=== PATIENT | female | born 1970 | race Caucasian/White ===

== ENCOUNTER → 2019-04-20 | Outpatient (CLI) | payer OTHER ==
[~2019-04-20] MED LIST: CIPROFLOXACIN500 M1 PO; ZOFRAN ODT4 MG PO
[2019-04-20 14:23] LABS: HEMATOCRIT 37.4 % (37.0-47.0); HEMOGLOBIN 12.8 gm/dL (12.0-15.0); MCH 30.6 pg (26.0-34.0); MCHC 34.3 g/dL (28.0-37.0); MCV 89.4 fL (80.0-100.0); MPV 7.3 fl. (7.2-11.1); RBC 4.19 mil/uL (4.20-5.00); RDW-CV 13.6 % (10.5-14.5); WBC 5.5 thou/uL (4.0-11.0)
== END ==
LOC: M.LAB 14:05
PROVIDERS: Internal Medicine Cardiovascular Disease
DX: R06.09 Other forms of dyspnea (principal)

== ENCOUNTER → 2019-05-05 | Outpatient (CLI) | payer OTHER ==
--- NOTE | 2019-05-05 21:09 | CARDNUC ---
[place] [address] CARDIAC NUCLEAR IMAGING REPORT Name: SEBASTIÁN SHANKS Room: [facility]#: [id number] Admission: 05/05/19 Attend Phys: Tony Katz, Discharge: Date of : 66 Date of Service: 05/05/192108 Report #: [id number] THIS REPORT FOR: //name// APPROVED REPORT Imaging Protocol: Rest Tc-99m/Stress Tc-99m 1 day Study performed: 05/05/2019 09:45:00 Indication: Chest pain, Dyspnea Patient Location: Out-Patient Stress Tech: Chrystal Silva Stress Nurse: La Dawn RN NM Tech:YANIV Salgado Ht: 5 ft 6 in Wt: 170 lbs BSA: 1.87 m2 BMI: 27.43 Medical History Medications: none Allergies: latex, morphine, sulfa Cardiac Risk Factors: Age Exercise History: Physically active Resting Data Rest SPECT myocardial perfusion imaging was performed in supine position 30 minutes following the intravenous injection of 11.1 mCi of Tc-99m Sestamibi. Time of rest injection: 1000 Date: 05/05/2019 The images were gated to evaluate regional wall motion and calculate left ventricular ejection fraction. Administration Route: IV Administration Site: Right Hand Exercise Stress At peak stress, the patient was injected intravenously with 34.6mCi of Tc-99m Sestamibi. Time of stress injection: 1125 Date: 05/05/2019 Administration Route: IV Administration Site: Right Hand Gated Stress SPECT was performed 30 minutes after stress injection. The images were gated to evaluate regional wall motion and calculate left ventricular ejection fraction. [place]one [place] [address] CARDIAC NUCLEAR IMAGING REPORT Name: ATKASEBASTIÁN PEREZ Room: [facility]#: [id number] Admission: 05/05/19 Attend Phys: Tony Katz, Discharge: Date of : 66 Date of Service: 05/05/19 210 Report #: [id number] Stress Test Details Stress Test: Exercise stress testing was performed using a Jesus protocol. HR Max Heart Rate (APMHR): 170 bpm Resting HR: 78 bpm Target HR (85% APMHR): 144 bpm Max HR Achieved: 162 bpm % of APMHR: 95 Recovery HR: 99 bpm BP Resting BP: 114/82 mmHg Max BP: 169/79 mmHg Recovery BP: 133/87 mmHg ECG Resting ECG: Sinus Rhythm Stress ECG: Sinus Tachycardia ST Change: None Arrhythmia: None Recovery ECG: Sinus Rhythm Recovery ST Change: None Recovery Arrhythmia: None Clinical Reason for Termination: Dyspnea, Fatigue Exercise duration: 6 min 56 sec Exercise capacity: 8.51 METs Overall Exercise Capacity for Age: Normal Functional Aerobic Impairment 95% The patient tolerated standard Jesus protocol exercise without significant cardiac symptoms. Stress ECG Conclusion The baseline 12-lead EKG shows sinus rhythm without significant ST or T wave abnormality. EKGs obtained during and post exercise showed sinus rhythm and sinus tachycardia with no significant ST or T wave changes when compared to baseline. There were no stress-induced arrhythmias. Study Quality Study: Good Artifact: No artifact Study Data At rest, the left ventricular ejection fraction was 75%.. Post stress, the left ventricular ejection was 71%.. [place] [address] CARDIAC NUCLEAR IMAGING REPORT Name: SEBASTIÁN SHANKS Room: [facility]#: [id number] Admission: 05/05/19 Attend Phys: Tony Katz, Discharge: Date of : 66 Date of Service: 05/05/192108 Report #: [id number] TID = 0.84. Perfusion Normal left ventricular perfusion. Wall Motion Normal left ventricular wall motion. Nuclear Conclusion ECG Findings: negative for ischemia Clinical Findings: negative for ischemia Nuclear Findings: negative for ischemia Exercise Capacity: Fair Left Ventricular Function: normal Risk Study: low Myocardial perfusion images show no defect to suggest infarct or ischemia. Left ventricular systolic function appears normal on gated studies. This is a low risk study. <Conclusion> The baseline 12-lead EKG shows sinus rhythm without significant ST or T wave abnormality. EKGs obtained during and post exercise showed sinus rhythm and sinus tachycardia with no significant ST or T wave changes when compared to baseline. There were no stress-induced arrhythmias. <ELECTRONICALLY SIGNED> By: Tony Katz MD, FACC 05/05/192108 08 08 Tony Katz MD, FACC /INF
== END ==
LOC: M.NUC 04-20 16:52
DX: R06.09 Other forms of dyspnea (principal); R00.2 Palpitations; R07.89 Other chest pain; J45.909 Unspecified asthma, uncomplicated; E78.5 Hyperlipidemia, unspecified; Z79.899 Other long term (current) drug therapy; Z88.5 Allergy status to narcotic agent; Z88.2 Allergy status to sulfonamides; Z91.040 Latex allergy status